=== PATIENT | male | born 1970 | race Two or more races ===

== ENCOUNTER 2020-05-09 16:15 | Emergency (ER) | payer SELFPAY ==
[~2020-05-09] VITALS: Ht 185.4 cm; Wt 88.5 kg
[2020-05-09 16:30] VITALS: BP 133/79
[2020-05-09 17:37] LABS: Basophils # (auto) 0.1 10 ^3/uL (0-0.2); Basophils % (auto) 0.8 % (0.0-2.0); Eosinophils # (auto) 0.3 10 ^3/uL (0-0.8); Eosinophils % (auto) 4.3 % (0.0-7.0); Hematocrit 41.2 % (41.0-53.0); Hemoglobin 13.5 g/dL (13.5-17.5); Lymphocytes # (auto) 1.7 10 ^3/uL (0.4-5.4); Lymphocytes % (auto) 25.2 % (10.0-50.0); Mean Corpuscular Hemoglobin 29.2 pg (28.0-32.0); Mean Corpuscular Hgb Conc. 32.8 g/dL (32.0-36.0); Mean Corpuscular Volume 89.1 fL (80.0-100.0); Monocytes # (auto) 0.6 10 ^3/uL (0-1.3); Monocytes % (auto) 9.1 % (0.0-12.0); Neutrophils # (auto) 4.2 10 ^3/uL (1.6-8.6); Neutrophils % (auto) 60.6 % (37.0-80.0); Platelet Count (auto) 255 10^3/uL (140-450); Red Blood Cells 4.63 10^6/uL (4.5-5.90); Red Cell Distribution Width 13.5 % (11.8-14.3); White Blood Cell 6.9 10^3/uL (4.4-10.8)
[2020-05-09 18:02] LABS: Albumin 3.1 g/dL (3.4-5.0); Anion Gap 4 (5-15); Blood Urea Nitrogen 16 mg/dL (7-18); Carbon Dioxide 25 mmol/L (21-32); Chloride 112 mmol/L (98-107); Glucose 93 mg/dL (74-106); Magnesium 2.2 mg/dL (1.6-2.6); Potassium 4.2 mmol/L (3.5-5.1); Sodium 141 mmol/L (136-145)
[2020-05-09 18:09] LABS: Alanine Aminotransferase 29 U/L (16-61); Alkaline Phosphatase 113 U/L (45-117); Aspartate Aminotransferase 23 U/L (15-37); BUN/Creatinine Ratio 14.3; Bilirubin, Total 0.3 mg/dL (0.2-1.0); GFR African American 90 mL/min; GFR Non-African American 74 mL/min; Total Protein 6.3 g/dL (6.4-8.2)
== END 2020-05-09 23:30 | disposition left against medical advice (07) ==
LOC: ER 16:15
DX: M79.601 Pain in right arm (principal); Z53.21 Procedure and treatment not carried out due to patient leaving prior to being seen by health care provider
CPT/HCPCS: 36415; 70450; 71046; 80053; 83735; 84484; 85025; 93005

== ENCOUNTER 2020-06-08 21:39 | Emergency (ER) | payer MEDICAID ==
[~2020-06-08] VITALS: Ht 182.9 cm; Wt 88.5 kg
[2020-06-08 22:40] LABS: Basophils # (auto) 0 10 ^3/uL (0-0.2); Basophils % (auto) 0.7 % (0.0-2.0); Eosinophils # (auto) 0.3 10 ^3/uL (0-0.8); Eosinophils % (auto) 3.8 % (0.0-7.0); Hematocrit 39.7 % (41.0-53.0); Hemoglobin 13.4 g/dL (13.5-17.5); Lymphocytes # (auto) 2.1 10 ^3/uL (0.4-5.4); Lymphocytes % (auto) 29.5 % (10.0-50.0); Mean Corpuscular Hemoglobin 30.1 pg (28.0-32.0); Mean Corpuscular Hgb Conc. 33.8 g/dL (32.0-36.0); Monocytes # (auto) 0.8 10 ^3/uL (0-1.3); Monocytes % (auto) 11.1 % (0.0-12.0); Neutrophils # (auto) 3.8 10 ^3/uL (1.6-8.6); Neutrophils % (auto) 54.9 % (37.0-80.0); Platelet Count (auto) 240 10^3/uL (140-450); Red Blood Cells 4.46 10^6/uL (4.5-5.90)
[2020-06-08 22:56] LABS: INR 0.91 (0.9-1.15); Partial Thromboplastin Time 27.2 sec (23.0-31.2)
[2020-06-08 23:03] LABS: Alanine Aminotransferase 31 U/L (16-61); Albumin 3.3 g/dL (3.4-5.0); Anion Gap 6 (5-15); Aspartate Aminotransferase 27 U/L (15-37); BUN/Creatinine Ratio 17.8; Blood Alcohol < 3.0 mg/dL (0-5); Blood Urea Nitrogen 16 mg/dL (7-18); Calcium 8.1 mg/dL (8.5-10.1); Carbon Dioxide 22 mmol/L (21-32); Chloride 113 mmol/L (98-107); GFR African American 116 mL/min; GFR Non-African American 96 mL/min; Glucose 118 mg/dL (74-106); Potassium 3.7 mmol/L (3.5-5.1); Sodium 141 mmol/L (136-145)
[2020-06-08 23:05] LABS: Alkaline Phosphatase 99 U/L (45-117); Bilirubin, Total 0.5 mg/dL (0.2-1.0); Total Protein 6.1 g/dL (6.4-8.2)
[2020-06-08] MEDS ORDERED: LORazepam 2MG/ML-1ML VIAL IV ONE (23:30)
[2020-06-08] MEDS ORDERED: SODIUM CHLORIDE 0.9% 1,000 ML IV ONE (23:30)
[2020-06-09] MEDS ORDERED: SODIUM CHLORIDE 0.9% 1,000 ML IV ONE (00:15)
[2020-06-09 02:30] VITALS: BP 123/88
[2020-06-09 02:42] LABS: Urine Bacteria FEW /hpf (None Seen); Urine Blood Negative /uL (Negative); Urine Specific Gravity 1.012 (1.001-1.035); Urine WBC 13 /hpf (0 - 3)
[2020-06-09 02:54] LABS: Alcohol, Urine < 3.0 mg/dL (0-10); Amphetamine Screen, Urine POSITIVE (NEGATIVE); Barbiturate Scree,Urine NEGATIVE (NEGATIVE); Benzodiazephine Screen, Urine NEGATIVE (NEGATIVE); Cannabinoid Screen, Urine NEGATIVE (NEGATIVE); Cocaine Screen, Urine NEGATIVE (NEGATIVE); Opiate Scree,Urine NEGATIVE (NEGATIVE); Phencyclidine Screen, Urine NEGATIVE (NEGATIVE)
== END 2020-06-09 03:12 | disposition home or self-care (01) ==
LOC: ER 21:39
DX: F45.8 Other somatoform disorders (principal); F11.23 Opioid dependence with withdrawal
CPT/HCPCS: 36415; 70450; 71045; 72125; 80053; 80307; 80320; 81001; 85025; 85610; 85730; 96361; 96374; 99285; J2060

== ENCOUNTER 2020-08-09 13:19 | Emergency (ER) | payer SELFPAY ==
[~2020-08-09] VITALS: Ht 182.9 cm; Wt 81.6 kg
[2020-08-09] MEDS ORDERED: TETRACAINE HCL 0.5% OPTH(EYE) SOLN 4ML LEFTEYE ONE (15:45)
[2020-08-09] MEDS ORDERED: ACETAMINOPHEN/CODEINE#3 (300/30mg) TAB PO ONE (15:45)
[2020-08-09] MEDS ORDERED: FLUORESCEIN SOD 1 MG TEST STRIP LEFTEYE ONE (15:45)
[2020-08-09 16:20] VITALS: BP 131/90
== END 2020-08-09 16:21 | disposition home or self-care (01) ==
LOC: ER 13:19
DX: B02.9 Zoster without complications (principal); Z20.828 Contact with and (suspected) exposure to other viral communicable diseases
CPT/HCPCS: 36415; 71045; 87426

== ENCOUNTER 2021-02-05 20:31 | Emergency (ER) | payer SELFPAY ==
[~2021-02-05] VITALS: Ht 182.9 cm; Wt 86.2 kg
[2021-02-05 20:59] VITALS: BP 127/85
[2021-02-05] MEDS ORDERED: IBUPROFEN 800 MG TAB PO ONE (23:45)
[2021-02-05] MEDS ORDERED: GABAPENTIN 400 MG CAP PO ONE (23:45)
== END 2021-02-06 02:12 | disposition left against medical advice (07) ==
LOC: MERGE 20:31 → ER 20:31
DX: R22.31 Localized swelling, mass and lump, right upper limb (principal); G62.9 Polyneuropathy, unspecified; I10 Essential (primary) hypertension; Y83.5 Amputation of limb(s) as the cause of abnormal reaction of the patient, or of later complication, without mention of misadventure at the time of the procedure; Z98.890 Other specified postprocedural states
CPT/HCPCS: 73090; 73120

== ENCOUNTER 2022-11-08 19:12 | Inpatient (IN) | payer OTHER ==
[~2022-11-08] VITALS: Ht 182.9 cm; Wt 76.0 kg
[2022-11-08] MEDS ORDERED: PRED20TA2 PO (21:10)
[2022-11-08] MEDS ORDERED: DIPH25CA66 PO (21:10)
[2022-11-08] MEDS ORDERED: IBUP800T27 PO (21:10)
[2022-11-08] MEDS ORDERED: CEPH-510 PO (21:10)
[2022-11-08] MEDS ORDERED: methylPREDNISolone SOD SUCC 125 MG/2 ML VL IM ONE (21:15)
[2022-11-08] MEDS ORDERED: SODIUM CHLORIDE 0.9% 1,000 ML IV ONE (21:15)
[2022-11-08] MEDS ORDERED: diphenhdrAMINE HCL 50 MG/1 ML VL IM ONE (21:15)
[2022-11-08] MEDS ORDERED: KETOROLAC TROMETH 60MG/2ML VIAL IM ONE (21:15)
[2022-11-08] MEDS ORDERED: TETANUS-DIPTH-ACEL PERTUSSIS 0.5ML SYR Tdap IM ONE (21:15)
[2022-11-08 21:22] LABS: Basophils # (auto) 0.1 10 ^3/uL (0-0.2); Basophils % (auto) 1.2 % (0.0-2.0); Eosinophils # (auto) 0.6 10 ^3/uL (0-0.8); Eosinophils % (auto) 6.1 % (0.0-7.0); Hematocrit 46.9 % (41.0-53.0); Hemoglobin 15.9 g/dL (13.5-17.5); Lymphocytes # (auto) 2.1 10 ^3/uL (0.4-5.4); Lymphocytes % (auto) 21.6 % (10.0-50.0); Mean Corpuscular Hemoglobin 29.6 pg (28.0-32.0); Mean Corpuscular Volume 87.3 fL (80.0-100.0); Monocytes # (auto) 1.1 10 ^3/uL (0-1.3); Monocytes % (auto) 11.1 % (0.0-12.0); Neutrophils # (auto) 5.9 10 ^3/uL (1.6-8.6); Nucleated Red Blood Cells % 0.2 %; Red Blood Cells 5.38 10^6/uL (4.5-5.90); Red Cell Distribution Width 13.4 % (11.8-14.3); White Blood Cell 9.8 10^3/uL (4.4-10.8)
[2022-11-08 21:42] LABS: Albumin 3.5 g/dL (3.4-5.0); BUN/Creatinine Ratio 16.8; Potassium 4.3 mmol/L (3.5-5.1)
[2022-11-08 21:50] LABS: Bilirubin, Total 2.2 mg/dL (0.2-1.0); Total Protein 7.4 g/dL (6.4-8.2)
[2022-11-08] MEDS ORDERED: ONDANSETRON ODT 4 MG TAB PO ONE (23:15)
[2022-11-09] MEDS ORDERED: cefTRIAXone 1GM/50ML D5W 50 ML IV ONE (01:30)
[2022-11-09] MEDS ORDERED: metroNIDAZOLE 500MG/100ML 100 ML IV ONE (01:30)
[2022-11-09] MEDS: D5W/SOD CHLO 0.9% 1,000 ML IV SCH ×2 (05:57→23:01)
[2022-11-09] MEDS: metroNIDAZOLE 500MG/100ML 100 ML IV SCH ×3 (06:51→23:01)
[2022-11-09] MEDS: MORPHINE SULFATE INJ 2 MG/ml SYRG IV PRN ×2 (15:37→20:03)
[2022-11-09] MEDS: ONDANSETRON HCL 4 MG/2 ML VIAL IV PRN ×2 (15:38→20:05)
[2022-11-09] MEDS ORDERED: IOHEXOL 300 MG/ML 100ML BOTTLE IJ ONE (19:26)
[2022-11-09 23:38] VITALS: BP 122/59
[2022-11-10] MEDS: ONDANSETRON HCL 4 MG/2 ML VIAL IV PRN (00:40)
[2022-11-10] MEDS ORDERED: PROMETHAZINE HCL 25 MG/ML 1ML IV ONE (05:15)
[2022-11-10] MEDS: metroNIDAZOLE 500MG/100ML 100 ML IV SCH (06:00)
[2022-11-10 09:00] VITALS: BP 117/78
[2022-11-10] MEDS: PANTOPRAZOLE 40 MG/10 ML VIAL INJ IV SCH (11:03)
[2022-11-10] MEDS: MORPHINE SULFATE INJ 2 MG/ml SYRG IV PRN (11:04)
[2022-11-10] MEDS: D5W/SOD CHLO 0.9% 1,000 ML IV SCH (11:08)
[2022-11-10 11:16] LABS: Basophils # (auto) 0.1 10 ^3/uL (0-0.2); Basophils % (auto) 1.2 % (0.0-2.0); Eosinophils # (auto) 0.3 10 ^3/uL (0-0.8); Eosinophils % (auto) 2.8 % (0.0-7.0); Hematocrit 43.9 % (41.0-53.0); Hemoglobin 14.8 g/dL (13.5-17.5); Lymphocytes # (auto) 1.7 10 ^3/uL (0.4-5.4); Lymphocytes % (auto) 17.8 % (10.0-50.0); Mean Corpuscular Hemoglobin 29.8 pg (28.0-32.0); Mean Corpuscular Hgb Conc. 33.7 g/dL (32.0-36.0); Mean Corpuscular Volume 88.6 fL (80.0-100.0); Monocytes # (auto) 0.9 10 ^3/uL (0-1.3); Monocytes % (auto) 9.3 % (0.0-12.0); Neutrophils # (auto) 6.6 10 ^3/uL (1.6-8.6); Neutrophils % (auto) 68.9 % (37.0-80.0); Nucleated Red Blood Cells % 0.1 %; Red Blood Cells 4.96 10^6/uL (4.5-5.90); Red Cell Distribution Width 13.6 % (11.8-14.3); White Blood Cell 9.6 10^3/uL (4.4-10.8)
[2022-11-10 11:52] LABS: Potassium 4.2 mmol/L (3.5-5.1)
[2022-11-10 12:12] LABS: BUN/Creatinine Ratio 18.5; Calcium 7.7 mg/dL (8.5-10.1)
[2022-11-10] MEDS ORDERED: BENZ1TAB2 PO (12:32)
[2022-11-10] MEDS ORDERED: LEVO88TA4 PO (12:32)
[2022-11-10] MEDS ORDERED: ALPR0.5T PO (12:32)
[2022-11-10] MEDS ORDERED: FURO20TA3 PO (12:32)
[2022-11-10 13:00] VITALS: BP 131/86
[2022-11-10] MEDS ORDERED: ALPRAZolam 0.25 MG TAB PO PRN (13:30)
[2022-11-10 13:53] LABS: Hepatitis A Ab IgM Negative
[2022-11-10 14:14] LABS: Hepatitis C Antibody Negative (Negative)
[2022-11-10 14:22] LABS: Hepatitis B Core IgM Positive
[2022-11-10 15:09] LABS: INR 1.02 (0.9-1.15)
[2022-11-10] MEDS: FOLIC ACID 1 MG, MULTIPLE VITAMIN 10 ML, MAGNESIUM SULF SDV 50% 8 MEQ, THIAMINE INJ 100... INJ SCH ×5 (16:30)
[2022-11-10 17:00] VITALS: BP 131/84
[2022-11-10] MEDS: SUCRALFATE 1 GM/10 ML ORAL SUSP PO SCH ×2 (17:00→23:13)
[2022-11-10] MEDS ORDERED: ACETAMINOPHEN 325 MG TAB PO ONE (18:15)
[2022-11-10] MEDS ORDERED: HYDROcodone-ACET 5/325MG TAB PO PRN (18:15)
[2022-11-11 05:00] VITALS: BP 116/77
[2022-11-11] MEDS: SUCRALFATE 1 GM/10 ML ORAL SUSP PO SCH ×2 (05:18→11:30)
[2022-11-11 06:14] LABS: Basophils # (auto) 0.1 10 ^3/uL (0-0.2); Basophils % (auto) 1.4 % (0.0-2.0); Eosinophils # (auto) 0.5 10 ^3/uL (0-0.8); Eosinophils % (auto) 6.2 % (0.0-7.0); Hematocrit 42.8 % (41.0-53.0); Hemoglobin 14.6 g/dL (13.5-17.5); Lymphocytes # (auto) 1.7 10 ^3/uL (0.4-5.4); Lymphocytes % (auto) 21.8 % (10.0-50.0); Mean Corpuscular Hemoglobin 30.3 pg (28.0-32.0); Mean Corpuscular Hgb Conc. 34.1 g/dL (32.0-36.0); Mean Corpuscular Volume 88.7 fL (80.0-100.0); Monocytes # (auto) 0.8 10 ^3/uL (0-1.3); Monocytes % (auto) 10.3 % (0.0-12.0); Neutrophils # (auto) 4.6 10 ^3/uL (1.6-8.6); Neutrophils % (auto) 60.3 % (37.0-80.0); Nucleated Red Blood Cells % 0.2 %; Red Blood Cells 4.82 10^6/uL (4.5-5.90); Red Cell Distribution Width 13.8 % (11.8-14.3); White Blood Cell 7.6 10^3/uL (4.4-10.8)
[2022-11-11] MEDS ORDERED: LEVOTHYROXINE SODIUM 88 MCG TAB PO SCH (07:00)
[2022-11-11] MEDS: PANTOPRAZOLE 40 MG/10 ML VIAL INJ IV SCH (08:51)
[2022-11-11 09:00] VITALS: BP 120/79
[2022-11-11] MEDS: MORPHINE SULFATE INJ 2 MG/ml SYRG IV PRN (09:02)
[2022-11-11] MEDS: FOLIC ACID 1 MG, MULTIPLE VITAMIN 10 ML, MAGNESIUM SULF SDV 50% 8 MEQ, THIAMINE INJ 100... INJ SCH ×5 (12:00)
[2022-11-11 13:00] VITALS: BP 118/82
[2022-11-11 13:57] LABS: INR 0.99 (0.9-1.15); Partial Thromboplastin Time 27.8 sec (24.6-33.4)
[2022-11-11] MEDS ORDERED: MEPERIDINE HCL (25 MG/ML) 1ML VIAL ONE (13:59)
[2022-11-11] MEDS ORDERED: MIDAZOLAM HCL 2MG/2ML 2ml VIAL (1mg/ml) ONE (13:59)
[2022-11-11] MEDS ORDERED: fentaNYL CITRATE 100 MCG/2 ML VL ONE (13:59)
[2022-11-11] MEDS ORDERED: LIDOCAINE VISCOUS 2% 15ML UD ONE (14:11)
[2022-11-11] MEDS ORDERED: KETOROLAC TROMETH 30 MG/ML 1ML VIAL IV ONE (14:15)
[2022-11-11] MEDS ORDERED: MORPHINE SULFATE 4 MG/ML SYR/VIAL IV PRN (14:15)
[2022-11-11] MEDS ORDERED: HYDROmorphone HCL 2 MG/ML VL/or syr IV PRN (14:15)
[2022-11-11] MEDS ORDERED: MIDAZOLAM HCL 2MG/2ML 2ml VIAL (1mg/ml) IV PRN (14:15)
[2022-11-11] MEDS ORDERED: ePHEDrine SULFATE 50 MG/ML AMP IV PRN (14:15)
[2022-11-11] MEDS ORDERED: LABETALOL HCL 5 MG/ML 4ML SYRINGE IV PRN (14:15)
[2022-11-11] MEDS ORDERED: ONDANSETRON HCL 4 MG/2 ML VIAL IV PRN (14:15)
[2022-11-11] MEDS ORDERED: PROPOFOL 10 MG/ML 20 ML IV ONE (14:33)
[2022-11-11] MEDS ORDERED: SUCR1TAB22 OR (15:46)
[2022-11-11] MEDS ORDERED: PANT40TA2 PO (15:46)
[2022-11-11 17:00] VITALS: BP 125/85
== END 2022-11-11 19:00 | disposition home or self-care (01) | DRG 241 ==
LOC: ER 19:12 → OVERFLOW 11-09 04:47 → WEST WING 11-09 21:23
PROVIDERS: ADMIT Nurse Practitioner; ATTEND Nurse Practitioner Acute Care
PROC: 0DB68ZX Excision of Stomach, Via Natural or Artificial Opening Endoscopic, Diagnostic (ICD-10-PCS; 2022-11-11)
PROC: 0DB98ZX Excision of Duodenum, Via Natural or Artificial Opening Endoscopic, Diagnostic (ICD-10-PCS; principal; 2022-11-11 14:22)
DX: K26.4 Chronic or unspecified duodenal ulcer with hemorrhage (principal); B19.10 Unspecified viral hepatitis B without hepatic coma; K29.81 Duodenitis with bleeding; F15.10 Other stimulant abuse, uncomplicated; F10.20 Alcohol dependence, uncomplicated; N28.1 Cyst of kidney, acquired; Z20.822 Contact with and (suspected) exposure to COVID-19; Z87.11 Personal history of peptic ulcer disease; Z91.199 Patient's noncompliance with other medical treatment and regimen due to unspecified reason
CPT/HCPCS: 36415; 74176; 74177; 74181; 80053; 80074; 82553; 83690; 85025; 85610; 85730; 87426; 93971; 96365; 96366; C9113; G0378; J0696; J1885; J2250; J2405; J2704; J3490; J7042; Q0162

== ENCOUNTER 2023-07-14 13:48 | Inpatient (IN) | payer OTHER ==
[~2023-07-14] VITALS: Ht 182.9 cm; Wt 88.9 kg
[~2023-07-14 13:48] MED LIST: ALPR0.5T PO; BENZ1TAB6 PO; FURO20TA3 PO; LEVO88TA4 PO; PANT40TA2 PO; SUCR1TAB22 OR
[2023-07-14 14:50] LABS: Basophils # (auto) 0 10 ^3/uL (0-0.2); Basophils % (auto) 0.7 % (0.0-2.0); Eosinophils # (auto) 0.1 10 ^3/uL (0-0.8); Hematocrit 43.3 % (41.0-53.0); Hemoglobin 14.5 g/dL (13.5-17.5); Lymphocytes # (auto) 0.8 10 ^3/uL (0.4-5.4); Lymphocytes % (auto) 14.6 % (10.0-50.0); Mean Corpuscular Hemoglobin 29.6 pg (28.0-32.0); Mean Corpuscular Hgb Conc. 33.5 g/dL (32.0-36.0); Mean Corpuscular Volume 88.2 fL (80.0-100.0); Monocytes # (auto) 0.9 10 ^3/uL (0-1.3); Monocytes % (auto) 17.2 % (0.0-12.0); Neutrophils # (auto) 3.4 10 ^3/uL (1.6-8.6); Neutrophils % (auto) 66.5 % (37.0-80.0); Nucleated Red Blood Cells % 0.1 %; Red Blood Cells 4.91 10^6/uL (4.5-5.90); Red Cell Distribution Width 13.8 % (11.8-14.3); White Blood Cell 5.1 10^3/uL (4.4-10.8)
[2023-07-14 15:01] LABS: Alanine Aminotransferase 24 U/L (7-40); Albumin 4.3 g/dL (3.2-4.8); Alkaline Phosphatase 80 U/L (46-116); Anion Gap 6 (5-15); Aspartate Aminotransferase 30 U/L (13-40); BUN/Creatinine Ratio 11.4 (10.0-20.0); Blood Urea Nitrogen 13 mg/dL (9-23); Calcium 8.7 mg/dL (8.7-10.4); Carbon Dioxide 24 mmol/L (20-30); Chloride 105 mmol/L (98-107); Glucose 96 mg/dL (74-106); Magnesium 1.9 mg/dL (1.6-2.6); Potassium 4.4 mmol/L (3.5-5.1); Sodium 135 mmol/L (136-145)
[2023-07-14 15:02] LABS: Bilirubin, Total 0.6 mg/dL (0.2-1.0); Total Protein 6.7 g/dL (5.7-8.2)
[2023-07-14] MEDS ORDERED: SODIUM CHLORIDE 0.9% 1,000 ML IV ONE ×2 (15:15)
[2023-07-14] MEDS ORDERED: IOHEXOL 350 MG/ML 100ML IJ ONE (16:01)
[2023-07-14] MEDS ORDERED: MORPHINE SULFATE 4 MG/ML SYR/VIAL IV ONE (17:00)
[2023-07-14] MEDS ORDERED: ONDANSETRON HCL 4 MG/2 ML VIAL IV ONE (17:00)
[2023-07-14] MEDS ORDERED: HYDROcodone-ACET 5/325MG TAB PO ONE (17:45)
[2023-07-14] MEDS ORDERED: NITROGLYCERIN 0.4 MG SL TAB SL PRN (18:00)
[2023-07-14] MEDS ORDERED: MORPHINE SULFATE 4 MG/ML SYR/VIAL IV PRN (18:00)
[2023-07-14] MEDS ORDERED: LORazepam 2MG/ML-1ML VIAL IV PRN (18:30)
[2023-07-14] MEDS: ACETAMINOPHEN 325 MG TAB PO PRN (19:14)
[2023-07-14 19:21] LABS: Magnesium 1.9 mg/dL (1.6-2.6)
[2023-07-14 20:59] LABS: Urine Bacteria NONE SEEN /hpf (None Seen); Urine Blood Negative /uL (Negative); Urine Clarity Clear (Clear); Urine Color Yellow (Yellow); Urine Mucus FEW (None Seen); Urine Protein, UAD 1+ (Negative); Urine Urobilinogen Normal (Negative); Urine WBC 1 /hpf (0 - 3)
[2023-07-14 21:00] LABS: Urine Specific Gravity > 1.035 (1.001-1.035)
[2023-07-14] MEDS ORDERED: PANTOPRAZOLE 40 MG TAB PO SCH (22:00)
[2023-07-14 22:30] VITALS: O2SAT 98
[2023-07-14] MEDS: SUCRALFATE 1 GM TAB PO SCH (22:38)
[2023-07-14] MEDS: ATORVASTATIN 20 MG TAB PO SCH (22:38)
[2023-07-15] MEDS: ACETAMINOPHEN 325 MG TAB PO PRN ×2 (00:12→23:01)
[2023-07-15] MEDS: ONDANSETRON HCL 4 MG/2 ML VIAL IV PRN ×2 (01:58→16:05)
[2023-07-15] MEDS: MORPHINE SULFATE INJ 2 MG/ml SYRG IV PRN ×3 (02:03→22:45)
[2023-07-15] MEDS: LEVOTHYROXINE SODIUM 88 MCG TAB PO SCH (06:13)
[2023-07-15 06:24] LABS: Basophils # (auto) 0 10 ^3/uL (0-0.2); Basophils % (auto) 0.7 % (0.0-2.0); Eosinophils # (auto) 0 10 ^3/uL (0-0.8); Eosinophils % (auto) 0.3 % (0.0-7.0); Hemoglobin 14.4 g/dL (13.5-17.5); Lymphocytes # (auto) 1.2 10 ^3/uL (0.4-5.4); Lymphocytes % (auto) 25.9 % (10.0-50.0); Mean Corpuscular Hemoglobin 30.3 pg (28.0-32.0); Mean Corpuscular Hgb Conc. 34.4 g/dL (32.0-36.0); Mean Corpuscular Volume 87.9 fL (80.0-100.0); Monocytes # (auto) 0.8 10 ^3/uL (0-1.3); Neutrophils # (auto) 2.6 10 ^3/uL (1.6-8.6); Neutrophils % (auto) 56.1 % (37.0-80.0); Red Blood Cells 4.77 10^6/uL (4.5-5.90); White Blood Cell 4.6 10^3/uL (4.4-10.8)
[2023-07-15 06:34] LABS: Alanine Aminotransferase 28 U/L (7-40); Alkaline Phosphatase 71 U/L (46-116); Anion Gap 7 (5-15); BUN/Creatinine Ratio 10.8 (10.0-20.0); Blood Urea Nitrogen 11 mg/dL (9-23); Calcium 8.2 mg/dL (8.7-10.4); Carbon Dioxide 22 mmol/L (20-30); Chloride 104 mmol/L (98-107); Glucose 93 mg/dL (74-106); Potassium 4.1 mmol/L (3.5-5.1); Sodium 133 mmol/L (136-145)
[2023-07-15 06:35] LABS: Aspartate Aminotransferase 39 U/L (13-40); Bilirubin, Total 0.4 mg/dL (0.2-1.0); Total Protein 6.5 g/dL (5.7-8.2)
[2023-07-15 07:28] VITALS: PULSE 106; RESP 20; O2SAT 94
[2023-07-15 09:11] LABS: Triglycerides 76 mg/dL (< 150)
[2023-07-15 09:12] LABS: LDL Cholesterol 99 mg/dL (< 100)
[2023-07-15 09:13] LABS: Cholesterol 156 mg/dL (< 200); HDL Cholesterol 45 mg/dL (40-59)
[2023-07-15] MEDS: ASPirin 81 mg TAB PO SCH (11:03)
[2023-07-15] MEDS: SUCRALFATE 1 GM TAB PO SCH ×2 (11:03→22:45)
[2023-07-15] MEDS: FUROSEMIDE 20 MG TAB PO SCH (11:04)
[2023-07-15] MEDS: PANTOPRAZOLE 40 MG/10 ML VIAL INJ IV SCH (11:04)
[2023-07-15] MEDS: DOCUSATE SOD 100 MG CAP PO SCH (11:04)
[2023-07-15] MEDS: ALPRAZolam 0.5 MG TAB PO SCH (11:04)
[2023-07-15] MEDS: COLCHICINE 0.6 MG CAP PO SCH (16:05)
[2023-07-15 17:52] LABS: Amphetamine Screen, Urine Pos (NEGATIVE); Barbiturate Scree,Urine Neg (NEGATIVE); Benzodiazephine Screen, Urine Neg (NEGATIVE); Cannabinoid Screen, Urine Neg (NEGATIVE); Cocaine Screen, Urine Neg (NEGATIVE); Opiate Scree,Urine Pos (NEGATIVE); Phencyclidine Screen, Urine Neg (NEGATIVE)
[2023-07-15 18:36] LABS: Erythrocyte Sedimentation Rate 2 mm/hr (0-20)
[2023-07-15 19:31] VITALS: PULSE 90; RESP 24; O2SAT 94
[2023-07-15] MEDS: FOLIC ACID 1 MG, MULTIPLE VITAMIN 10 ML, MAGNESIUM SULF SDV 50% 8 MEQ, THIAMINE INJ 100... INJ SCH ×5 (20:02)
[2023-07-15 20:58] VITALS: BP 138/73; PULSE 74; RESP 20; TEMP 99.1; O2SAT 95
[2023-07-15 22:00] VITALS: BP 138/73; PULSE 74; RESP 20; TEMP 99.1; O2SAT 93
[2023-07-15] MEDS: ATORVASTATIN 20 MG TAB PO SCH (22:45)
[2023-07-16] MEDS: LORazepam 2MG/ML-1ML VIAL IV PRN ×3 (00:08→16:05)
[2023-07-16 05:00] VITALS: BP 110/69; PULSE 74; RESP 20; TEMP 98.6; O2SAT 97
[2023-07-16] MEDS: LEVOTHYROXINE SODIUM 88 MCG TAB PO SCH (06:58)
[2023-07-16 08:00] VITALS: PULSE 88; RESP 18; O2SAT 96
[2023-07-16 08:52] VITALS: BP 122/81; PULSE 78; RESP 18; TEMP 99.1; O2SAT 96
[2023-07-16] MEDS: ASPirin 81 mg TAB PO SCH (09:27)
[2023-07-16] MEDS: COLCHICINE 0.6 MG CAP PO SCH (09:27)
[2023-07-16] MEDS: SUCRALFATE 1 GM TAB PO SCH ×2 (09:27→21:13)
[2023-07-16] MEDS: FUROSEMIDE 20 MG TAB PO SCH (09:28)
[2023-07-16] MEDS: DOCUSATE SOD 100 MG CAP PO SCH (09:28)
[2023-07-16] MEDS: PANTOPRAZOLE 40 MG/10 ML VIAL INJ IV SCH (09:29)
[2023-07-16] MEDS ORDERED: LORazepam 2MG/ML-1ML VIAL IV ONE (09:30)
[2023-07-16] MEDS: ALPRAZolam 0.5 MG TAB PO SCH (09:56)
[2023-07-16] MEDS: FOLIC ACID 1 MG, MULTIPLE VITAMIN 10 ML, MAGNESIUM SULF SDV 50% 8 MEQ, THIAMINE INJ 100... INJ SCH ×5 (12:26)
[2023-07-16 13:00] VITALS: BP 119/83; PULSE 78; RESP 19; TEMP 99.2; O2SAT 97
[2023-07-16] MEDS: ONDANSETRON HCL 4 MG/2 ML VIAL IV PRN (16:05)
[2023-07-16 17:00] VITALS: BP 131/71; PULSE 92; RESP 24; TEMP 98.7; O2SAT 92
[2023-07-16] MEDS: MORPHINE SULFATE INJ 2 MG/ml SYRG IV PRN (18:43)
[2023-07-16] MEDS ORDERED: LORazepam 2MG/ML-1ML VIAL IV PRN (19:45)
[2023-07-16] MEDS ORDERED: LORazepam 2MG/ML-1ML VIAL ONE (19:53)
[2023-07-16 20:00] VITALS: PULSE 94; O2SAT 98
[2023-07-16] MEDS: chlordiazePOXIDE HCL 25 MG CAP PO PRN (20:38)
[2023-07-16] MEDS: ATORVASTATIN 20 MG TAB PO SCH (21:13)
[2023-07-16] MEDS ORDERED: HALOPERIDOL LACTATE 5 MG/ML INJ VIAL IM PRN (21:15)
[2023-07-17] MEDS: chlordiazePOXIDE HCL 25 MG CAP PO PRN (03:26)
[2023-07-17 05:00] VITALS: BP 115/69; PULSE 90; RESP 18; TEMP 98.8; O2SAT 91
[2023-07-17] MEDS: LEVOTHYROXINE SODIUM 88 MCG TAB PO SCH (06:54)
[2023-07-17 08:00] VITALS: PULSE 94; O2SAT 98
[2023-07-17] MEDS: ASPirin 81 mg TAB PO SCH (09:53)
[2023-07-17] MEDS: DOCUSATE SOD 100 MG CAP PO SCH (09:53)
[2023-07-17] MEDS: PANTOPRAZOLE 40 MG/10 ML VIAL INJ IV SCH (09:54)
[2023-07-17] MEDS: FUROSEMIDE 20 MG TAB PO SCH (09:54)
[2023-07-17] MEDS: COLCHICINE 0.6 MG CAP PO SCH (09:54)
[2023-07-17] MEDS: SUCRALFATE 1 GM TAB PO SCH ×2 (09:54→21:20)
[2023-07-17 11:10] VITALS: BP 108/73; PULSE 88; RESP 18; TEMP 98.8; O2SAT 94
[2023-07-17] MEDS: FOLIC ACID 1 MG, MULTIPLE VITAMIN 10 ML, MAGNESIUM SULF SDV 50% 8 MEQ, THIAMINE INJ 100... INJ SCH ×5 (12:00)
[2023-07-17 15:31] VITALS: BP 113/71; PULSE 87; RESP 19; TEMP 98.7; O2SAT 96
[2023-07-17] MEDS: MORPHINE SULFATE INJ 2 MG/ml SYRG IV PRN (16:14)
[2023-07-17 20:00] VITALS: PULSE 94; O2SAT 98
[2023-07-17 20:41] VITALS: BP 127/67; PULSE 92; RESP 19; TEMP 97.9; O2SAT 98
[2023-07-17] MEDS: ATORVASTATIN 20 MG TAB PO SCH (21:20)
[2023-07-17] MEDS: ACETAMINOPHEN 325 MG TAB PO PRN (21:20)
[2023-07-18 04:51] VITALS: PULSE 82; RESP 19; TEMP 98.2
[2023-07-18] MEDS: MORPHINE SULFATE INJ 2 MG/ml SYRG IV PRN (04:55)
[2023-07-18] MEDS: ONDANSETRON HCL 4 MG/2 ML VIAL IV PRN (05:01)
[2023-07-18 05:16] VITALS: BP 115/78; PULSE 82; RESP 19; TEMP 98.2; O2SAT 95
[2023-07-18] MEDS: LEVOTHYROXINE SODIUM 88 MCG TAB PO SCH (07:03)
[2023-07-18 08:54] VITALS: BP 97/55; PULSE 84; RESP 19; TEMP 97.5; O2SAT 94
[2023-07-18] MEDS: PANTOPRAZOLE 40 MG/10 ML VIAL INJ IV SCH (09:57)
[2023-07-18] MEDS: COLCHICINE 0.6 MG CAP PO SCH (09:58)
[2023-07-18] MEDS: ASPirin 81 mg TAB PO SCH (09:59)
[2023-07-18] MEDS: SUCRALFATE 1 GM TAB PO SCH (09:59)
[2023-07-18] MEDS: DOCUSATE SOD 100 MG CAP PO SCH (10:00)
[2023-07-18] MEDS: FUROSEMIDE 20 MG TAB PO SCH (10:04)
[2023-07-18] MEDS: LORazepam 2MG/ML-1ML VIAL IV PRN (11:15)
[2023-07-18] MEDS: FOLIC ACID 1 MG, MULTIPLE VITAMIN 10 ML, MAGNESIUM SULF SDV 50% 8 MEQ, THIAMINE INJ 100... INJ SCH ×5 (12:00)
[2023-07-18] MEDS ORDERED: ASPI-498 OR (12:44)
[2023-07-18] MEDS ORDERED: SUCR1TAB PO (12:44)
[2023-07-18] MEDS ORDERED: ATOR20TA PO (12:44)
[2023-07-18] MEDS ORDERED: COLC1TAB3 PO (12:44)
[2023-07-18] MEDS ORDERED: CHL25C PO (12:44)
[2023-07-18] MEDS ORDERED: PANT40T PO (12:44)
[2023-07-18 13:00] VITALS: BP 107/76; PULSE 79; RESP 18; TEMP 97.5; O2SAT 95
== END 2023-07-18 17:30 | disposition home or self-care (01) | DRG 144 ==
LOC: EDBD 13:48 → EDUNIT# 13:48 → ER 13:48 → TELE 18:05 → TELE-WESTW 07-15 20:57
PROVIDERS: ADMIT Nurse Practitioner Family; ATTEND Family Medicine
DX: S29.8XXA Other specified injuries of thorax, initial encounter (principal); I50.9 Heart failure, unspecified; E03.9 Hypothyroidism, unspecified; M94.0 Chondrocostal junction syndrome [Tietze]; E66.9 Obesity, unspecified; F10.129 Alcohol abuse with intoxication, unspecified; K57.90 Diverticulosis of intestine, part unspecified, without perforation or abscess without bleeding; K27.7 Chronic peptic ulcer, site unspecified, without hemorrhage or perforation; F15.10 Other stimulant abuse, uncomplicated; X58.XXXA Exposure to other specified factors, initial encounter; F17.200 Nicotine dependence, unspecified, uncomplicated; Z91.199 Patient's noncompliance with other medical treatment and regimen due to unspecified reason; Y93.89 Activity, other specified; Y92.89 Other specified places as the place of occurrence of the external cause; Y99.8 Other external cause status; Z68.25 Body mass index [BMI] 25.0-25.9, adult
CPT/HCPCS: 36415; 70450; 71045; 71260; 73502; 73620; 74177; 80053; 80061; 80307; 80320; 81001; 82550; 82962; 83036; 83690; 83735; 83880; 84436; 84443; 84481; 84484; 85025; 85379; 85652; 86141; 93005; 93306; C9113; G0378; J2405